=== PATIENT | female | born 2000 | race Caucasian/White ===

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

== ENCOUNTER 2022-01-12 17:16 | Inpatient (IN) | payer MEDICAID, SELFPAY ==
[2022-01-12 17:18] VITALS: BP 122/74; PULSE 96; RESP 20; TEMP 36.7; O2SAT 100; BMI 26.7
--- NOTE | 2022-01-12 18:49 | EX.ED.SAOD ---
HPI History of Present Illness Chief Complaint: Substance Abuse Informant: patient Onset/Context/Timing Onset: Month(s) Context: Gradual Onset Timing: Continuous Current Severity: Mild Maximum Severity: Mild Associated Symptoms Associated Symptoms: Positive for vomiting* and diarrhea* Narrative Narrative: 21-year-old female history of heroin and fentanyl abuse by smoking the substances. Denies any IV drug abuse. Requesting detox. Last use 2 days ago. Had some nausea, vomiting and diarrhea from withdrawal. Prior similar symptoms: Yes Recent Illness/Hospitalization: No PFSH PFSH Medical History no medical history no medical history Home Medications NK 01/12/22 [History Last Taken Unknown] Allergy/AdvReac Type Severity Reaction Status Date / Time No Known Allergies Allergy Verified 01/12/22 17:17 Surgical History no surgical history Social History Smoking Status: Current every day smoker tobacco type: cigarettes ROS ROS ED ROS Narrative Nausea, vomiting and diarrhea. Withdrawal from drug abuse. Review of Systems ROS Unobtainable: Denies due to encephalopathy Constitutional Constitutional ED: Denies chills Eyes Eyes: Denies blurry vision ENT ENT ED: Denies ear pain Cardiovascular Cardiovascular: Denies chest pain Respiratory/Chest Respiratory/Chest: Denies cough Gastrointestinal Gastrointestinal: Reports diarrhea, nausea and vomiting; Denies abdominal pain, constipation or melena Genitourinary Genitourinary ED: Denies dysuria Musculoskeletal Musculoskeletal: Denies arthralgias Integumentary Denies abscess Neurologic Neurologic: Denies headache(s) Psychiatric Psychiatric: Denies anxiety Endocrine Endocrinology: Denies cold intolerance Hematologic/Lymphatic Hematologic/Lymphatic: Denies easy bleeding Allergic/Immunologic Allergic/Immunologic ED: Denies mouth swelling EXAM Physical Exam Narrative Exam Narrative: 21-year-old female no acute distress. Vital signs stable afebrile. H EENT exam unremarkable atraumatic. Moist weeks membranes. Lungs clear to auscultation. Heart regular rhythm rate about 90 no murmur. Abdomen soft nontender. Moving all 4 extremities. No track rooney. Neurologically awake and alert no focal motor deficits. Const Vital Signs: 01/12/22 17:18 Temperature 98.0 F Temperature Source Temporal Pulse Rate 96 Respiratory Rate 20 H Blood Pressure 122/74 H Blood Pressure Mean 90 Pulse Ox 100 Oxygen Delivery Method Room Air Positive well nourished and well developed; Negative for cachectic or contractures General Appearance ED: well developed; Negative for cachectic, contractures or pallor Nutritional Appearance: Negative for cachectic HEENT Reports moist mucous membranes atraumatic; Negative for trauma Eyes PERRL and EOMs intact bilaterally General Eye ED: Negative for pale conjunctiva or scleral icterus Neck no lymphadenopathy, supple and no JVD Thyroid: Negative for tender Lymph Lymphatic: no lymphadenopathy noted; Negative for lymphadenopathy Chest Wall inspection of chest normal Chest: Negative for other Resp normal respiratory effort and clear to auscultation bilaterally Effort and Inspection: Negative for retractions Auscultation: Negative for rales, rhonchi or wheezes Cardio regular rate, regular rhythm, S1 normal heart sound, S2 normal heart sound and no murmurs Rate: Negative for bradycardia Rhythm: Negative for abnormal rhythm Bruits: Negative for other GI soft to palpation, non-tender, non-distended and no masses Inspection: Negative for abdominal distention Auscultation: Negative for hyperactive bowel sounds Palpation: Negative for tender Bladder / Kidney Exam: No other Back/Spine no CVA tenderness General Back: Negative for CVA tenderness Cervical Spine: Negative for cervical spine tenderness Thoracic Spine / Upper Back: Negative for thoracic spinal tenderness Lumbar Spine / Lower Back: Negative for lumbar spinal tenderness Extremity General Extremety ED: Negative for edema or tenderness General Extremity: Negative for edema Neuro oriented x3 Sensorium / Orientation: alert, oriented to person, oriented to place and oriented to time; Negative for confused, lethargic or stuporous Speech: speech normal Motor Exam: strength 5/5 throughout Psych mental status grossly normal and thought process normal Attitude: No belligerent Mood & Affect: Negative for depressed Skin General Skin Exam: Negative for jaundice or pallor Lesions: no lesions Rashes: no rashes Trauma: Negative for abrasion MDM MDM MDM Narrative Medical decision making narrative: 21-year-old female no seen past medical history. Requesting detox for fentanyl and heroin abuse by smoking them. No prior detox. Exam benign. Medically cleared. Hospitalist on page for admission. Discharge Plan Dx/Rx/DC Orders Clinical Impression: Heroin abuse, Mild fentanyl abuse, Desire for detoxification Disposition Disposition: [facility]
[2022-01-12 18:53] VITALS: BP 132/118; PULSE 69; RESP 16; TEMP 37.1; O2SAT 94
--- NOTE | 2022-01-12 19:09 | HP.PCM.HOS_ITS ---
[facility] - General General Date of Admission: 01/12/22 Date of Service: 01/12/22 Chief Complaint: Opiate detox HPI Narrative MIRNA JOSE, is a 21 F who presented to the emergency department was [facility] on 01/12/2022 requesting opiate detox. The patient states she started using approximately 2 g of fentanyl/heroin 3 months ago. That was her first use. She denies any history of IV drug use and states he would snort her opiates. She denies any other drug use, alcohol use and reports that she smokes approximately 1 pack of cigarettes at least a day. Her last use was approximately 2 days ago and she is having significant symptoms including nausea, vomiting, diarrhea, shaking, piloerection, malaise, abdominal pain, body aches, and she is had an intermittent cough as she has not smoked in the last several days either because she has not felt well enough to do so. She has never been through detox previously. Vital signs on presentation showed a temperature of 98.8, pulse of 69, blood pressure 132/18, respiratory rate of 16, oxygen saturations 94% on room air. CBC, CMP, and toxicology screen are pending on admission. PENDING SALE TO [facility] Medical History (Updated 01/12/22 @ 19:[address] Brittney Recinos DO) uterine contractions in third trimester, antepartum Tobacco abuse Medical History no medical history Home Medications NK 01/12/22 [History Last Taken Unknown] Allergy/AdvReac Type Severity Reaction Status Date / Time No Known Allergies Allergy Verified 01/12/22 17:17 no significant family history Surgical History no surgical history no surgical history Social History (Updated 01/12/22 @ 19:[address] Brittney Recinos DO) Smoking Status: Current every day smoker tobacco type: cigarettes Smoking packs per day: 1 Smoking cigarettes per day: 20.0 alcohol intake: never substance use type: heroin and other details: Fentanyl ROS Constitutional Constitutional: Reports anorexia, chills, fatigue, malaise and weakness; Denies change in weight, fever(s), night sweats or other Eyes Eyes: Denies blurry vision, change in eye color, change in vision, discharge from eye(s), double vision, erythema, eye pain, loss of vision or other ENT HEENT: Denies abnormal hearing, dysphagia, ear pain, epistaxis, headache(s), hearing loss, nasal congestion, nasal discharge, post nasal drip, sinus pr essure, sore throat or other Cardiovascular Cardiovascular: Denies chest pain, claudication, dyspnea on exertion, edema, lightheadedness, orthopnea, palpitations, paroxysmal nocturnal dyspnea, rapid heart rate, syncope or other Respiratory/Chest Respiratory/Chest: Reports cough and productive cough; Denies dyspnea, excessive phlegm production, hemoptysis, shortness of breath at rest, shortness of breath with exertion, wheezing or other Gastrointestinal Gastrointestinal: Reports abdominal pain, diarrhea, loose stools, nausea and vomiting; Denies coffee ground emesis, constipation, dyspepsia, hematemesis, hematochezia, melena or other Genitourinary Genitourinary: Denies burning urination, difficulty urinating, dysuria, hematuria, nocturia, urinary frequency, urinary hesitancy, urinary incontinence, urinary urgency or other Musculoskeletal Musculoskeletal: Reports arthralgias and myalgias; Denies back pain, joint pain, joint stiffness, joint swelling, neck pain or other Neurologic Neurologic: Denies abnormal gait, abnormal speech, confusion, disequilibrium, dizziness, focal weakness, headache(s), numbness, paresthesias, seizure-like activity, seizures, syncope, tingling, tremor(s) or other Psychiatric Psychiatric: Denies anxiety, depression, homicidal ideation, suicidal ideation or other Endocrine Endocrinology: Denies change in body appearance, cold intolerance, excessive sweating, heat intolerance, polydipsia, polyuria or other Hematologic/Lymphatic Hematologic/Lymphatic: Denies anemia, easy bleeding, easy bruising, lymphadenopathy or other Allergic/Immunologic Allergic/Immunologic: Denies rhinitis, hives, eczemia, asthma or other Vital Signs Vital Signs Vital Signs: 01/12/22 17:18 01/12/22 18:53 Temperature 98.0 F 98.8 F Temperature Source Temporal Oral Pulse Rate 96 69 Respiratory Rate 20 H 16 Blood Pressure 122/74 H 132/118 H Blood Pressure Mean 90 122 Pulse Ox 100 94 Oxygen Delivery Method Room Air Room Air Weight Weight: 75.1 kg Body Mass Index (BMI) 26.7 Physical Exam Const alert, oriented x3, no apparent distress, average body habitus and well nourished Constitutional Narrative: Young white female lying in bed, appears uncomfortable but nontoxic, family at bedside, no acute distress General Appearance: cooperative HEENT normocephalic, head/scalp atraumatic, hearing grossly normal bilaterally, moist oral mucous membranes, oropharynx normal and dentition normal HEENT Narrative: Mallampati 2, no thrush Resp normal respiratory effort, no retractions and no use of accessory muscles Resp Narrative: Scattered end expiratory wheeze with few rhonchi that clear with cough Auscultation: rhonchi and wheezes; Negative for crackles or rales Cardio regular rate, regular rhythm, S1 normal heart sound, S2 normal heart sound, no murmurs, no rub, no gallops, no clicks and no JVD GI normal to inspection, nondistended, normoactive bowel sounds, soft to palpation, non-tender and non-distended; Negative for hepatosplenomegaly Extremity no clubbing, cyanosis or edema Extremity Narrative: 2+ pedal pulses Neuro oriented x3, CN's II-XII intact bilaterally, moves all extremities and no focal motor deficits Sensorium / Orientation: awake, alert, oriented to person, oriented to place and oriented to time Speech: speech normal Psych Psych Narrative: Affect is flattened, mood seems depressed Results Lab / Micro Data Attestation: I reviewed the patient's lab results. Assessment & Plan Assessment/Plan (1) Desire for detoxification: (2) Mild fentanyl abuse: (3) Heroin abuse: (4) Opiate abuse, continuous: PLAN: Plan Acute opiate withdrawal -Drug of choice fentanyl/heroin -Uses intranasally -Typically uses 2 g daily -Last use 2 days ago -Very symptomatic at admission -Start Subutex per [facility] protocol -All lab including CBC/CMP/tox screen are pending on admission -Supportive medications -180 consult Elevated blood pressure -Likely related to withdrawal -Monitor -No history of hypertension at baseline Tobacco abuse -Patient smokes at least 1 pack cigarettes a day -Has not smoked in several days secondary to feeling poorly -Nicotine patch available -Recommend cessation DVT prophylaxis -Low risk -Ambulation protocol CODE STATUS -Full code Charges/Coding Visit Charges Inpatient E&M: 47027 Init Hosp L2
--- NOTE | 2022-01-12 19:13 | CM.ED ---
Addendum entered by Christine Lawrence 01/12/22 19:30: SW placed a call to treatment navigator and updated Jovita on pt's admission to [facility]. Original Note: Social Work Note Reason for Referral: Pt requesting detox from [facility] SW in to speak with pt. Pt has guest present in room. Pt gave permission for this worker to speak to her in front of her guest. Pt confirms she is at [facility] for RAMP/Detox Program. Pt states that she was informed of the rules. Plan: SUSHMA Lawrence TRAFFIC RATE ANALYST, [employer]ING [employer]
[2022-01-12 19:18] LABS: Absolute Lymphocyte Count 1.71 X10^3/uL (0.83-4.51); Absolute Neutrophil Count 8.4 X10^3/uL (2.0-7.7); Basophil# 0.03 X10^3/uL; Basophil% 0.3 % (0-1); Hematocrit 41.4 % (37-47); Hemoglobin 13.7 g/dL (12.0-15.0); Lymphocyte # 1.71 X10^3/ul (0.83-4.51); Lymphocyte % 15.9 % (19-41); Mean Corp Hgb Conc 33.1 g/dL (32-36); Mean Corpuscular Hgb 28.2 pg (27.0-32.0); Mean Corpuscular Volume 85.2 fL (81-99); Mean Platelet Vol. 9.8 fl (6.2-12.0); Monocyte# 0.57 X10^3/uL; Monocyte% 5.3 % (0-10); NRBC Flagged by Analyzer 0 % (0-5); Neutrophil # 8.41 X10^3/uL (2.7-7.7); Neutrophil % 77.9 % (47-70); Platelet Count 528 K/mm3 (150-450); RBC Distribution Width CV 14.5 % (11.6-14.6); RBC Distribution Width SD 44.2 fl (35.1-43.9); Red Blood Count 4.86 M/mm3 (4.2-5.4); White Blood Count 10.8 K/mm3 (4.4-11.0)
[2022-01-12 19:31] VITALS: BP 132/118; PULSE 69; RESP 16; TEMP 37.1; O2SAT 94
[2022-01-12 19:33] LABS: Amphetamine Urine VISTA NEGATIVE (<1000 ng/mL); Barbiturate Urine VISTA NEGATIVE (< 200 ng/mL); Benzodiazepine Urine VISTA NEGATIVE (< 200 ng/mL); Cocaine Urine VISTA NEGATIVE (< 300 ng/mL); Ecstacy Urine VISTA NEGATIVE (< 500 ng/mL); Methadone Urine VISTA NEGATIVE (< 300 ng/mL); PCP Urine VISTA NEGATIVE (< 25 ng/mL); THC Urine VISTA POSITIVE (< 50 ng/mL); Vista UDS pH Range 5
[2022-01-12 19:35] LABS: ALB/GLOB Ratio 0.8 RATIO (0.9-2.4); AST(SGOT) 16 U/L (15-37); Alanine Aminotransfer ALT/SGPT 41 U/L (13-56); Alkaline Phosphatase 105 U/L (45-117); Anion Gap 9 (5-15); BUN 9 mg/dL (7-18); BUN/Creat Ratio 11.3 RATIO (10-20); Calcium,Total 9.3 mg/dL (8.5-10.1); Chloride 108 mmol/L (98-107); Creatinine, Serum 0.79 mg/dL (0.55-1.02); EST Glomerular Filtration Rate 97 mL/min (>60); Est Glom Filt Rate - Afr Amer 118 mL/min (>60); Estimated Creatinine Clearance 106.34 ml/min; Globulin 4.8 g/dL (2.2-4.2); Glucose 100 mg/dL (74-106); Potassium 3.4 mmol/L (3.5-5.1); Protein, Total 8.8 g/dL (6.4-8.2); Sodium Level 141 mmol/L (136-145)
[2022-01-12 20:12] LABS: Internal QC Validated? YES +Cl - CLEAR BKGD; Pregnancy, Urine Negative Negative
[2022-01-12 20:28] VITALS: BMI 26.6
[2022-01-12 20:32] VITALS: BP 122/73; PULSE 64; RESP 18; TEMP 37.2; O2SAT 98
[2022-01-12] MEDS: traZODone 100 MG Tablet PO (20:48)
[2022-01-12] MEDS: Methocarbamol 750 MG Tablet 1500 MG PO (20:48)
[2022-01-12] MEDS: Buprenorphine HCl 2 MG TAB.SUBL SL (20:48)
[2022-01-12] MEDS: Dicyclomine 10 MG Capsule 20 MG PO (20:48)
[2022-01-13] VITALS (7 sets, daily range): BP systolic 100–119; BP diastolic 59–79; PULSE 70–102; RESP 16–21; TEMP 36.9–38.1; O2SAT 95–100
[2022-01-13] MEDS: Ondansetron 8 MG Tablet PO ×2 (01:23→12:01)
[2022-01-13] MEDS: hydrOXYzine PAM 25 MG Capsule 50 MG PO ×2 (01:23→12:01)
[2022-01-13] MEDS: cloNIDine HCl 0.1 MG Tablet PO (01:23)
[2022-01-13] MEDS: Buprenorphine HCl 2 MG TAB.SUBL SL ×3 (04:56→21:00)
[2022-01-13] MEDS: Methocarbamol 750 MG Tablet 1500 MG PO ×2 (08:23→17:58)
[2022-01-13] MEDS: Acetaminophen 325 MG Tablet 650 MG PO ×2 (08:23→21:00)
[2022-01-13] MEDS: Gabapentin 300 MG Capsule PO ×2 (08:23→17:58)
[2022-01-13 09:16] LABS: ALB/GLOB Ratio 0.8 RATIO (0.9-2.4); AST(SGOT) 13 U/L (15-37); Alanine Aminotransfer ALT/SGPT 32 U/L (13-56); Albumin, Serum 3.5 g/dL (3.2-5.0); Alkaline Phosphatase 89 U/L (45-117); Anion Gap 7 (5-15); BUN 10 mg/dL (7-18); BUN/Creat Ratio 13.3 RATIO (10-20); Calcium,Total 9.1 mg/dL (8.5-10.1); Chloride 112 mmol/L (98-107); Creatinine, Serum 0.75 mg/dL (0.55-1.02); EST Glomerular Filtration Rate 104 mL/min (>60); Est Glom Filt Rate - Afr Amer 125 mL/min (>60); Estimated Creatinine Clearance 112.01 ml/min; Globulin 4.2 g/dL (2.2-4.2); Glucose 103 mg/dL (74-106); Potassium 3.7 mmol/L (3.5-5.1); Protein, Total 7.7 g/dL (6.4-8.2); Sodium Level 142 mmol/L (136-145)
[2022-01-13] MEDS: Dicyclomine 10 MG Capsule 20 MG PO (12:01)
--- NOTE | 2022-01-13 12:02 | PCM.PN.HOSP ---
Subjective Subjective Follow-up on acute opioid withdrawal: Patient was seen and examined. She complains of feeling hot and cold flashes. Complains of generalized aches. Objective Data Objective Data Vital Signs: Vital Signs Temp Pulse Resp BP Pulse Ox O2 Del Method 98.5 F 70 16 117/59 L 100 Room Air 01/13/22 04:52 01/13/22 04:52 01/13/22 04:52 01/13/22 04:52 01/13/22 04:52 01/13/22 04:52 Oxygen Delivery Method Room Air Weight: 74.9 kg Body Mass Index (BMI) 26.6 Lab / Micro Data Result Diagrams: 01/12/22 18:02 01/13/22 08:10 Labs: Laboratory Results - last 24 hr 01/12/22 18:02: WBC 10.8, RBC 4.86, Hgb 13.7, Hct 41.4, MCV 85.2, MCH 28.2, MCHC 33.1, RDW Std Deviation 44.2 H, RDW Coeff of Mikayla 14.5, Plt Count 528 H, MPV 9.8, Immature Gran % (Auto) 0.600, Neut % (Auto) 77.9 H, Lymph % (Auto) 15.9 L, Sandoval % (Auto) 5.3, Eos % (Auto) 0.0, Baso % (Auto) 0.3, Absolute Neuts (auto) 8.4 H, Absolute Lymphs (auto) 1.71, Nucleated RBC % 0 01/12/22 18:02: Sodium 141, Potassium 3.4 L, Chloride 108 H, Carbon Dioxide 24.0, Anion Gap 9, BUN 9, Creatinine 0.79, Estim Creat Clear Calc 106.34, Est GFR (MDRD) Af Amer 118, Est GFR (MDRD) Non-Af 97, BUN/Creatinine Ratio 11.3, Glucose 100, Calcium 9.3, Total Bilirubin 0.50, AST 16, ALT 41, Alkaline Phosphatase 105, Total Protein 8.8 H, Albumin 4.0, Globulin 4.8 H, Albumin/Globulin Ratio 0.8 L 01/12/22 18:02: Urine Opiates Screen NEGATIVE, Urine Methadone Screen NEGATIVE, Ur Barbiturates Screen NEGATIVE, Ur Phencyclidine Scrn NEGATIVE, Ur Amphetamines Screen NEGATIVE, MDMA (Ecstasy) Screen NEGATIVE, U Benzodiazepines Scrn NEGATIVE, Urine Cocaine Screen NEGATIVE, U Cannabinoids Screen POSITIVE H, Ur Drug Screen Comment 01/12/22 18:02: Urine Test Negative 01/13/22 08:10: Sodium 142, Potassium 3.7, Chloride 112 H, Carbon Dioxide 23.0, Anion Gap 7, BUN 10, Creatinine 0.75, Estim Creat Clear Calc 112.01, Est GFR (MDRD) Af Amer 125, Est GFR (MDRD) Non-Af 104, BUN/Creatinine Ratio 13.3, Glucose 103, Calcium 9.1, Total Bilirubin 0.50, AST 13 L, ALT 32, Alkaline Phosphatase 89, Total Protein 7.7, Albumin 3.5, Globulin 4.2, Albumin/Globulin Ratio 0.8 L Physical Exam Narrative Physical exam: General: Alert, Oriented x3, Cooperative, No apparent distress HEENT: Atraumatic Oral: Moist Mucosa Neck: Supple Lungs: Clear to auscultation Cardiovascular: HS I+II, regular, no murmurs Abdomen: Bowel Sounds Present, Soft, Non Tender Extremities: No edema Skin: No rashes, No breakdown Neurological: Grossly intact Psych/Mental Status: Appropriate Assessment & Plan Assessment/Plan (1) Desire for detoxification: (2) Mild fentanyl abuse: (3) Heroin abuse: (4) Opiate abuse, continuous: PLAN: Plan 1. Acute opiate withdrawal, in a patient who uses fentanyl/heroin Continue on opioid withdrawal protocol 2. Hypokalemia, resolved 3. Elevated blood pressure, improved, no history of hypertension 4. Nicotine dependence, advised to quit, continue nicotine patch 5. DVT prophylaxis - low risk; early ambulation recommended Charges/Coding Visit Charges Inpatient E&M: 50876 Subs Hosp L2
--- NOTE | 2022-01-13 12:17 | ADDICTION ---
This curriculum writer met with PT to conduct ASAM, MSE, AUDIT, DUDIT assessments and to plan for d/c. PT A+Ox4 and participated actively. All assessments completed and placed in PT's chart. PT plans to f/u with [facility] in [place] for treatment services. PT did not indicate a need for transportation post d/c from [facility].
[2022-01-13] MEDS: Ipratropium/Albuterol Sulfate 3 ML AMPUL.NEB INHALATION ×2 (14:01→19:15)
[2022-01-13] MEDS: traZODone 100 MG Tablet PO (21:00)
[2022-01-14] MEDS: hydrOXYzine PAM 25 MG Capsule 50 MG PO (00:35)
[2022-01-14 03:20] VITALS: BP 121/56; PULSE 86; RESP 18; TEMP 37.4; O2SAT 99
[2022-01-14] MEDS: Gabapentin 300 MG Capsule PO (03:25)
[2022-01-14] MEDS: Buprenorphine HCl 2 MG TAB.SUBL SL ×2 (03:45→13:01)
--- NOTE | 2022-01-14 08:07 | PN.HOSP_ITS ---
Subjective Subjective Follow-up on acute opioid withdrawal: Patient was seen and examined.?No acute events overnight. Patient stated that she felt much improved. Her coughing is improved with breathing treatment. Objective Data Objective Data Vital Signs: Vital Signs Temp Pulse Resp BP Pulse Ox O2 Del Method 99.3 F H 86 18 121/56 H 99 Room Air 01/14/22 03:20 01/14/22 03:20 01/14/22 03:20 01/14/22 03:20 01/14/22 03:20 01/14/22 03:20 Oxygen Delivery Method Room Air Weight: 74.9 kg Body Mass Index (BMI) 26.6 Lab / Micro Data Result Diagrams: 01/12/22 18:02 01/13/22 08:10 Labs: Laboratory Results - last 24 hr 01/13/22 08:10: Sodium 142, Potassium 3.7, Chloride 112 H, Carbon Dioxide 23.0, Anion Gap 7, BUN 10, Creatinine 0.75, Estim Creat Clear Calc 112.01, Est GFR (MDRD) Af Amer 125, Est GFR (MDRD) Non-Af 104, BUN/Creatinine Ratio 13.3, Glucose 103, Calcium 9.1, Total Bilirubin 0.50, AST 13 L, ALT 32, Alkaline Phosphatase 89, Total Protein 7.7, Albumin 3.5, Globulin 4.2, Albumin/Globulin Ratio 0.8 L Physical Exam Narrative Physical exam: General: Alert, Oriented x3, Cooperative, No apparent distress HEENT: Atraumatic Oral: Moist Mucosa Neck: Supple Lungs: Clear to auscultation, occasional scattered wheezes Cardiovascular: HS I+II, regular, no murmurs Abdomen: Bowel Sounds Present, Soft, Non Tender Extremities: No edema Skin: No rashes, No breakdown Neurological: Grossly intact Psych/Mental Status: Appropriate Assessment & Plan Assessment/Plan (1) Desire for detoxification: (2) Mild fentanyl abuse: (3) Heroin abuse: (4) Opiate abuse, continuous: PLAN: Plan 1. Acute opiate withdrawal, improving, Cina score is 1, Patient who uses fentanyl/heroin Continue on opioid withdrawal protocol grain elevator worker consulted, patient will follow up with [facility] recovery services in [place] 2. Hypokalemia, resolved 3. Elevated blood pressure, improved, no history of hypertension 4. Nicotine dependence, advised to quit, continue nicotine patch 5. DVT prophylaxis - low risk; early ambulation recommended Charges/Coding Visit Charges Inpatient E&M: 50717 Subs Hosp L2
[2022-01-14 08:47] VITALS: BP 105/63; PULSE 93; RESP 15; TEMP 37.1; O2SAT 100
[2022-01-14 13:42] VITALS: BP 111/73; PULSE 93; RESP 16; TEMP 37.2; O2SAT 99
--- NOTE | 2022-01-14 15:27 | DCINST_ITS ---
Discharge Instructions Diet Discharge Diet: No restrictions Activity Discharge Activity: Return to Normal Activity Follow Up Care Test Results: Test results from this visit will be discussed in further detail at your follow- up appointment, if applicable. Discharge Plan Admission Admit Date/Time: 01/12/22 18:58 Primary Reason for Your Visit: Acute opioid withdrawal Attending Provider: Ivonne Adhikari Primary Care Provider: Care Physician,No Primary Consulting Providers: Brittney Recinos Instructions Additional Instructions / Restrictions: You are strongly advised to continue to avoid use of opioids. You are also advised to stop smoking. Follow-up with your outpatient drug rehab program as scheduled. Discharge Orders/Prescriptions Prescriptions: No Action NK Referrals / Follow Up: Care Physician,No Primary [Primary Care Provider] - Disposition Disposition (needs filled in before D/C Order can be placed): Home, Self Care
--- NOTE | 2022-01-14 15:28 | PCM.DC.SUM ---
Providers Date of Admission: 01/12/22 Date of Discharge: 01/14/22 Primary Care Physician: Jaquelin Primary Care Phys Reason For Visit: OPIATE DETOX Diagnosis Discharge Diagnosis (1) Desire for detoxification: Status: Acute (2) Mild fentanyl abuse: Status: Deleted Code(s): F11.10 - Opioid abuse, uncomplicated (3) Heroin abuse: Status: Deleted Code(s): F11.10 - Opioid abuse, uncomplicated (4) Opiate abuse, continuous: Status: Acute Code(s): F11.10 - Opioid abuse, uncomplicated Medications at Discharge Home Medications NK 01/12/22 Hospital Course Operations None Procedures None Summary of Care Provided Minutes Spent on Discharge: 25 Hospital Course: 21-year-old female who presented requesting for medical stabilization from acute opioid withdrawal. Patient admits to using 2 g of fentanyl/heroin. She snorts the opioids. She also smokes a pack of cigarettes a day. Her last use was 2 days prior to admission. She admitted to nausea, vomiting, diarrhea, shaking, piloerection, malaise, abdominal pain, body aches. She was admitted to the [facility] floor and managed under opioid withdrawal protocol with Subutex. Patient continued to improve. She was seen by delinquency prevention social worker and will follow up with [facility] drug program in the outpatient. Physical Exam Narrative See progress note on the day Weight / BMI Weight Weight: 74.9 kg Body Mass Index (BMI) 26.6 ABG / Lab / Microbiology Data Result Diagrams: 01/12/22 18:02 01/13/22 08:10 D/C Instructions Discharge Diet: No restrictions Meaningful Use Info Meaningful Use Diagnoses (Choose all that apply): None applicable Discharge Plan Admission Admit Date/Time: 01/12/22 18:58 Primary Reason for Your Visit: Acute opioid withdrawal Attending Provider: Ivonne Adhikari Primary Care Provider: Care Physician,Jaquelin Primary Consulting Providers: Brittney Recinos Instructions Additional Instructions / Restrictions: You are strongly advised to continue to avoid use of opioids. You are also advised to stop smoking. Follow-up with your outpatient drug rehab program as scheduled. Discharge Orders/Prescriptions Prescriptions: No Action NK Referrals / Follow Up: Care Physician,No Primary [Primary Care Provider] - Disposition Disposition (needs filled in before D/C Order can be placed): Home, Self Care Charges/Coding Visit Charges Inpatient E&M: 52599 Disch Hosp
== END 2022-01-14 16:51 | disposition home or self-care (01) | DRG 773 ==
LOC: ED 18:49 → MS3 19:32
PROVIDERS: Admitting Provider Internal Medicine; Emergency Provider Emergency Medicine; Visit Provider Internal Medicine
DX: F11.13 Opioid abuse with withdrawal (principal); E87.6 Hypokalemia; F11.23 Opioid dependence with withdrawal; F17.210 Nicotine dependence, cigarettes, uncomplicated; R03.0 Elevated blood-pressure reading, without diagnosis of hypertension
CPT/HCPCS: 36415; 80053; 80307; 81025; 85025; 87633; 94640; 99251; 99283; 99406; G0463

== ENCOUNTER 2022-08-26 17:59 | Observation (INO) | payer MEDICAID, SELFPAY ==
[2022-08-26 18:00] VITALS: BP 135/71; PULSE 117; RESP 16; TEMP 36.6; O2SAT 99; BMI 31.6
--- NOTE | 2022-08-26 19:00 | EDS_ITS ---
HPI History of Present Illness Chief Complaint: Substance Abuse Narrative Narrative: 22-year-old female who denies significant past medical history except for previous detox a year or so ago presents for detox from fentanyl and heroin. She states she usually smokes or snorts opiates. She denies use of other substances. She last used at 4 AM, approximately 15 hours ago. She is now feeling nausea and abdominal cramping. Last menstrual period 1 week ago. She presents for detox. She states last time she detoxed and then went to outpatient 180 program. [facility] Medical History Physical exam, pre-employment uterine contractions in third trimester, antepartum Tobacco abuse Home Medications NK 01/12/22 [History Last Taken Unknown] Allergy/AdvReac Type Severity Reaction Status Date / Time No Known Allergies Allergy Verified 08/26/22 18:01 Social History Smoking Status: Former smoker alcohol intake: never substance use type: heroin and other details: Fentanyl ROS ROS ED ROS Narrative Constitutional: No fever, no chills. HEENT: No sore throat. No neck pain. No loss of vision. No rhinorrhea. Cardiovascular: No chest pain. No palpitations. No pedal edema. Respiratory: No cough, no shortness of breath. Abdominal: Crampy abdominal pain. Positive nausea. No vomiting. Genitourinary: No dysuria. No hematuria. Musculoskeletal: No myalgias. No arthralgias. Neurologic: No headaches. No dizziness. No lightheadedness. Skin: No rash. No change in color. Psychiatric: No depression. No anxiety. EXAM Physical Exam Narrative Exam Narrative: Afebrile. Vital signs noted. HEENT: Normocephalic. Atraumatic. PERRL, EOMI. Neck soft and supple. No point tenderness or step off. Cardiovascular: Positive tachycardia, no murmurs, rubs, or gallops appreciated. Respiratory: No tachypnea. Lungs clear to auscultation bilaterally. Gastrointestinal: Abdomen soft, nontender, with normoactive bowel sounds. No rebound or guarding. Neurological: Awake. Alert. Nonfocal, nonlateralizing. Skin: No rash. Normal color. No pallor. Musculoskeletal: No pedal edema. Full range of motion extremities. Const Vital Signs: 08/26/22 18:00 Temperature 98 F Temperature Source Temporal Pulse Rate 117 H Respiratory Rate 16 Blood Pressure 135/71 H Blood Pressure Mean 92 Pulse Ox 99 Oxygen Delivery Method Room Air MDM MDM MDM Narrative Medical decision making narrative: She will be bolused normal saline 1 L intravenously and administered Zofran 4 mg intravenously. This is secondary to her tachycardia. Medical screening labs will be obtained. I will review her medical clearance labs, and discussed patient with the hospitalist. Disposition is admit for detox. Patient is in stable condition. Discharge Plan Triage Chief Complaint: Substance Abuse ED Provider: Sumeet Flores Dx/Rx/DC Orders Prescriptions: No Action NK Primary Care Provider: Care Physician,No Primary Referrals: Care Physician,No Primary [Primary Care Provider] -
[2022-08-26 20:30] LABS: Amphetamine Urine VISTA NEGATIVE (<1000 ng/mL); Barbiturate Urine VISTA NEGATIVE (< 200 ng/mL); Benzodiazepine Urine VISTA POSITIVE (< 200 ng/mL); Cocaine Urine VISTA NEGATIVE (< 300 ng/mL); Ecstacy Urine VISTA NEGATIVE (< 500 ng/mL); Methadone Urine VISTA NEGATIVE (< 300 ng/mL); PCP Urine VISTA NEGATIVE (< 25 ng/mL); THC Urine VISTA NEGATIVE (< 50 ng/mL); Vista UDS pH Range 8
[2022-08-26] MEDS: 0.9% Normal Saline 1,000 ML 999 ML IV (20:39)
[2022-08-26] MEDS: Ondansetron 4 MG/2 ML Vial IV (20:39)
[2022-08-26 20:40] VITALS: BP 116/64; PULSE 73; RESP 16; O2SAT 98
[2022-08-26 20:47] LABS: Absolute Lymphocyte Count 1.53 X10^3/uL (0.83-4.51); Absolute Neutrophil Count 7.7 X10^3/uL (2.0-7.7); Basophil# 0.04 X10^3/uL; Basophil% 0.4 % (0-1); Eosinophil# 0.31 X10^3/uL; Eosinophils% 3.1 % (0-5); Hematocrit 39.6 % (37-47); Hemoglobin 13.2 g/dL (12.0-15.0); Lymphocyte # 1.53 X10^3/ul (0.83-4.51); Lymphocyte % 15.4 % (19-41); Mean Corp Hgb Conc 33.3 g/dL (32-36); Mean Corpuscular Hgb 28.4 pg (27.0-32.0); Mean Corpuscular Volume 85.3 fL (81-99); Mean Platelet Vol. 8.9 fl (6.2-12.0); Monocyte# 0.37 X10^3/uL; Monocyte% 3.7 % (0-10); NRBC Flagged by Analyzer 0 % (0-5); Neutrophil # 7.67 X10^3/uL (2.7-7.7); Neutrophil % 77.2 % (47-70); Platelet Count 396 K/mm3 (150-450); RBC Distribution Width CV 13.5 % (11.6-14.6); RBC Distribution Width SD 42.5 fl (35.1-43.9); Red Blood Count 4.64 M/mm3 (4.2-5.4); White Blood Count 9.9 K/mm3 (4.4-11.0)
[2022-08-26 20:55] LABS: Alcohol, Blood (Medical)-Serum < 3.0 mg/dL
[2022-08-26 20:58] LABS: Anion Gap 9 (5-15); BUN 9 mg/dL (7-18); BUN/Creat Ratio 14.3 RATIO (10-20); Calcium,Total 9.4 mg/dL (8.5-10.1); Chloride 104 mmol/L (98-107); Creatinine, Serum 0.63 mg/dL (0.55-1.02); EST Glomerular Filtration Rate 126 mL/min (>60); Est Glom Filt Rate - Afr Amer 152 mL/min (>60); Estimated Creatinine Clearance 127.11 ml/min; Glucose 112 mg/dL (74-106); Potassium 3.6 mmol/L (3.5-5.1); Sodium Level 138 mmol/L (136-145)
[2022-08-26 21:37] LABS: Internal QC Validated? YES +Cl - CLEAR BKGD; Pregnancy, Serum, hCG Quali. NEGATIVE Negative
[2022-08-26 22:00] VITALS: PULSE 64; RESP 18; O2SAT 100
--- NOTE | 2022-08-26 23:24 | HP.PCM.HOS_ITS ---
HPI - General General Date of Admission: 08/26/22 Date of Service: 08/26/22 Chief Complaint: Desire for detoxification HPI Narrative MIRNA JOSE, is a 22 F with a significant history of opioid abuse who presents to the emergency department for help with detoxification. Patient reports using about a gram of fentanyl and heroin each day. Last time he used was several hours on the same day of presentation. She has been using for the past 3 months. She smokes and snorts the heroin and fentanyl. She reports withdrawal symptoms of shakiness, nausea, and vomiting. On presentation to the emergency department patient was tachycardic and she was given IV fluids with resolution of tachycardia. Urine drug screen showed opiates and benzodiazepine. Patient reports that recently she had a drug screen with her special police officer and other substances were found. She reported these substances may be mixed with the heroin and fentanyl which she uses. She reported that she uses marijuana. Last time, she used marijuana was about a month ago. Also she reports that she smokes tobacco. Last time she smoked tobacco was about 3 months ago. [facility] Medical History Physical exam, pre-employment uterine contractions in third trimester, antepartum Tobacco abuse Home Medications NK 01/12/22 [History Last Taken Unknown] Allergy/AdvReac Type Severity Reaction Status Date / Time No Known Allergies Allergy Verified 08/26/22 18:01 Family History (Updated 08/26/22 @ 23:[address] Ammon Ling MD) Other CVA (cerebral vascular accident) Surgical History no surgical history no surgical history Social History Smoking Status: Former smoker alcohol intake: never substance use type: heroin and other details: Fentanyl ROS ROS Narrative Pertinent positives and pertinent negatives as noted in HPI. All other systems were reviewed and are negative Vital Signs Vital Signs Vital Signs: 08/26/22 18:00 08/26/22 20:40 08/26/22 22:00 Temperature 98 F Temperature Source Temporal Pulse Rate 117 H 73 64 Respiratory Rate 16 16 18 Blood Pressure 135/71 H 116/64 Blood Pressure Mean 92 81 Pulse Ox 99 98 100 Oxygen Delivery Method Room Air Room Air Room Air Weight Weight: 86.296 kg Body Mass Index (BMI) 31.6 Physical Exam Narrative Physical exam: General: Well-nourished, well-developed. Head: Normocephalic, atraumatic, no tenderness Eyes: Vision is grossly intact. EOMI ENT, no trauma, moist mucous membranes, no rhinorrhea Neck: Nontender, No thyromegaly. CVS: Regular rate and rhythm. S1-S2 present. No murmur, gallop or rub. Respiratory : clear to auscultation bilaterally, chest wall nontender, no wheezing Abdomen: Soft, nontender, nondistended, normal bowel sounds, no masses : Deferred Back: Nontender, no CVA tenderness, no midline spinal tenderness, deformities, step-offs Extremities: Nontender full range of motion, no trauma Skin: Normal color, no trauma, abrasions Neuro: Alert, oriented, cranial nerves II through XII grossly intact. Psychiatry: Normal mood. Normal affect. Not depressed. Not anxious. Results Lab / Micro Data Result Diagrams: 08/26/22 20:30 08/26/22 20:30 Labs: Laboratory Results - last 24 hr 08/26/22 19:35: Urine Opiates Screen POSITIVE H, Urine Methadone Screen NEGATIVE, Ur Barbiturates Screen NEGATIVE, Ur Phencyclidine Scrn NEGATIVE, Ur Amphetamines Screen NEGATIVE, MDMA (Ecstasy) Screen NEGATIVE, U Benzodiazepines Scrn POSITIVE H, Urine Cocaine Screen NEGATIVE, U Cannabinoids Screen NEGATIVE, Ur Drug Screen Comment 08/26/22 20:30: WBC 9.9, RBC 4.64, Hgb 13.2, Hct 39.6, MCV 85.3, MCH 28.4, MCHC 33.3, RDW Std Deviation 42.5, RDW Coeff of Mikayla 13.5, Plt Count 396, MPV 8.9, Immature Gran % (Auto) 0.200, Neut % (Auto) 77.2 H, Lymph % (Auto) 15.4 L, Wilcox % (Auto) 3.7, Eos % (Auto) 3.1, Baso % (Auto) 0.4, Absolute Neuts (auto) 7.7, Absolute Lymphs (auto) 1.53, Nucleated RBC % 0 08/26/22 20:30: Sodium 138, Potassium 3.6, Chloride 104, Carbon Dioxide 25.0, Anion Gap 9, BUN 9, Creatinine 0.63, Estim Creat Clear Calc 127.11, Est GFR (MDRD) Af Amer 152, Est GFR (MDRD) Non-Af 126, BUN/Creatinine Ratio 14.3, Glucose 112 H, Calcium 9.4 08/26/22 20:30: Ethyl Alcohol < 3.0 08/26/22 20:30: Serum , Qual NEGATIVE Assessment & Plan Assessment/Plan (1) Opiate abuse, continuous: (2) Desire for detoxification: PLAN: Plan Opioid dependence and withdrawal Review of previous records show the patient was at hospital from 01/12/2022 to 01/15/2022 for opioid detoxification. Urine toxicology was reviewed. It showed positive opiates and positive benzodiazepines. Patient be started on Subutex and other adjunctive medications: Gabapentin as needed; dicyclomine as needed; Vistaril as needed; methocarbamol as needed; clonidine as needed; Imodium as needed; trazodone as needed and Zofran as needed. Monitor COWS and CINA score DVT prophylaxis Low risk Encourage to ambulate Charges/Coding Visit Charges Inpatient E&M: 12451 Init Hosp L2
[2022-08-26 23:44] VITALS: BP 119/84; PULSE 81; RESP 16; TEMP 36.1; O2SAT 99
[2022-08-27 00:14] VITALS: BMI 31.4
[2022-08-27 00:18] VITALS: BP 130/63; PULSE 81; RESP 14; TEMP 36.9; O2SAT 100
[2022-08-27 04:06] VITALS: BP 128/76; PULSE 68; RESP 16; TEMP 36.9; O2SAT 100
[2022-08-27] MEDS: Dicyclomine 10 MG Capsule 20 MG PO (04:34)
[2022-08-27] MEDS: Methocarbamol 750 MG Tablet 1500 MG PO (04:34)
[2022-08-27] MEDS: Ondansetron 8 MG Tablet PO (04:34)
[2022-08-27] MEDS: Buprenorphine HCl 2 MG TAB.SUBL 4 MG SL (04:34)
[2022-08-27] MEDS: cloNIDine HCl 0.1 MG Tablet PO (05:54)
[2022-08-27] MEDS: hydrOXYzine PAM 25 MG Capsule 50 MG PO (05:54)
--- NOTE | 2022-08-27 06:48 | PCM.PN.BLA ---
Progress Note Notified that patient left AGAINST MEDICAL ADVICE.
== END 2022-08-27 06:40 | disposition left against medical advice (07) ==
LOC: ED 23:32 → MS3 08-27 13:17
PROVIDERS: Admitting Provider Hospitalist; Emergency Provider Emergency Medicine; Visit Provider Hospitalist
DX: F11.23 Opioid dependence with withdrawal (principal); Z87.891 Personal history of nicotine dependence
CPT/HCPCS: J7030; 80048; 80307; 82077; 84703; 85025; 96361; 96374; 99221; 99284; A4216; G0378; J2405

== ENCOUNTER 2024-11-26 02:46 | Emergency (ER) | payer MEDICAID, SELFPAY ==
[2024-11-26 02:48] VITALS: BP 120/94; PULSE 124; RESP 18; TEMP 36.6; O2SAT 98; BMI 30.6
--- NOTE | 2024-11-26 02:58 | RAD_ITS ---
PROCEDURE: ANKLE MIN 3 VIEWS 11/25/2024 REASON FOR EXAM: INJURY TECHNIQUE: 3 views of the left ankle COMPARISON: None FINDINGS: The bones are normal in morphology and alignment. There is no evidence of fracture or subluxation. The ankle mortise is intact. The imaged articulations are normal. There is soft tissue swelling over the medial malleolus. Bone mineral content is within normal limits. RAD/Ankle min 3 Views IMPRESSION: Soft tissue swelling over the medial malleolus is consistent with soft tissue i njury. There is no evidence of fracture. Reading Location: [facility]
[2024-11-26] MEDS: Acetaminophen 500 MG Tablet 1000 MG PO (04:14)
[2024-11-26 04:47] LABS: Red Blood Cells-Urine 0 SEEN /hpf (0-5)
[2024-11-26 04:49] LABS: Color, Urine Yellow (Yellow); Glucose, Dipstick Normal (Normal); Ketone-Dipstick 50 mg/dl (Negative); Leukocyte Esterase-Dipstick 100 /ul (Negative); Nitrite-Dipstick Positive (Negative); Occult Blood-Urine 10 /ul (Negative); Protein-Dipstick 30 mg/dl (Negative); Specific Gravity, Urine 1.025 (1.002-1.030); Urine Bilirubin Dipstick Negative (Negative); Urine Clarity Cloudy (Clear); Urine Urobilinogen 1 mg/dl (Normal)
[2024-11-26 05:04] LABS: Bacteria 4+ /hpf (None Seen); Calcium Oxalate Crystals Ur 1+ /hpf (<or=2+); Internal QC Validated? YES +Cl - CLEAR BKGD; Mucous, Urine 4+ /hpf (<or=2+); Pregnancy, Urine Negative Negative; Squamous Epithelial Cells - UA 10-25 SEEN /hpf (5-10); White Blood Cells >100 SEEN /hpf (0-5)
--- NOTE | 2024-11-26 05:17 | EX.ED.DYSGE1 ---
HPI History of Present Illness Chief Complaint: Lower Extremity Injury Narrative Narrative: Patient is a 24-year-old female with past medical history of IV drug use, hepatitis C, tobacco use who presented to the emergency department with a chief complaint of left ankle pain. States that she was walking and twisted her ankle on the side of sidewalk. States that she was having severe pain therefore she came here for further evaluation management. Patient denies hit her head and denies pain anywhere else. [facility] Medical History IV drug abuse Hepatitis C Marijuana abuse Physical exam, pre-employment Tobacco abuse uterine contractions in third trimester, antepartum Home Medications ?Medication ?Instructions ?Recorded ?Last Taken ?Type cephalexin 500 mg capsule 500 mg PO BID 5 days #10 caps 11/26/24 Unknown Rx escitalopram oxalate 20 mg tablet 20 mg PO DAILY 11/26/24 Unknown History (Lexapro) Allergy/AdvReac Type Severity Reaction Status Date / Time No Known Allergies Allergy Verified 11/26/24 02:47 Family History Other CVA (cerebral vascular accident) Social History Smoking Status: Current every day smoker tobacco type: e-cigarettes alcohol intake: never substance use type: heroin and other details: Fentanyl ROS ROS ED ROS Narrative Constitutional: Denies headache, lightness, dizziness Neurological: Denies numbness, wheeze, tingling Musculoskeletal: Complains of left ankle pain as noted above Skin: Denies any new rashes or lesions EXAM Physical Exam Narrative Exam Narrative: General: Patient sitting on the edge of the bed in tears secondary to her ankle pain Head: Atraumatic, normocephalic Eyes: PERRL bilaterally, EOMI blood, no conjunctival injection noted Neck: Soft, supple, trachea midline Cardiovascular: Patient tachycardic with regular rhythm Abdomen: No tenderness palpation, soft Musculoskeletal: Patient has tenderness palpation over the medial malleolus on the left ankle, although bony prominence palpated joints taken to full range of motion no pain elicited Extremities: DP pulses +2/4 in the bilateral lower extremities, +4/5 strength noted in the left lower extremity secondary to her ankle pain, +5/5 strength in the bilateral upper extremities in the right lower extremity Neurological: Patient follow commands knew that she was at [facility] year is 2024 Skin: Warm, dry, intact no rashes or lesions noted Const Vital Signs: 11/26/24 02:48 Temperature 98 F Temperature Source Oral Pulse Rate 124 H Respiratory Rate 18 Blood Pressure 120/94 H Blood Pressure Mean 102 Pulse Ox 98 MDM MDM MDM Narrative Medical decision making narrative: Patient is a 24-year-old female who presents to the emerged part with a chief complaint of left ankle pain. On the differential diagnose includes but not limited to ankle sprain, lateral malleolus fracture, medial malleolus fracture, tibia fracture. Once workup is obtained reviewed she will be reevaluated. Patient states that there is possibility therefore we will avoid NSAIDs and treat with Tylenol. Patient's x-ray of her ankle reviewed by myself and by radiology which showed soft tissue swelling over the medial malleolus is consistent with soft tissue injury there is no evidence of fracture. test was negative, urinalysis was consistent with UTI should be given prescription for Keflex year she was advised to follow-up and urine culture. She is encouraged return with worsening symptoms or concerns. She would like crutches and an Aircast which was provided. All question concerns answered she is discharged home in stable condition. She was advised to ice, elevate her leg as well. Lab Data Labs: Laboratory Results - last 24 hr 11/26/24 04:35 Urine Color Yellow Urine Clarity Cloudy Urine pH 6.0 Ur Specific Cameron 1.025 Urine Protein 30 H Urine Glucose (UA) Normal Urine Ketones 50 H Urine Occult Blood 10 H Urine Nitrite Positive H Urine Bilirubin Negative Urine Urobilinogen 1 H Ur Leukocyte Esterase 100 H Urine RBC 0 SEEN Urine WBC >100 SEEN Ur Squamous Epith Cells 10-25 SEEN Calcium Oxalate Crystal 1+ Urine Bacteria 4+ Urine Mucus 4+ Urine Test Negative Radiography Diagnostic Testing: Clinical Impression(s) from Imaging Studies Ankle X-Ray 11/26/24 02:58 IMPRESSION: Soft tissue swelling over the medial malleolus is consistent with soft tissue injury. There is no evidence of fracture. Reading [facility] Discharge Plan Triage Chief Complaint: Lower Extremity Injury ED Provider: Milton Mccarty Dx/Rx/DC Orders Clinical Impression: Ankle sprain Prescriptions: New cephalexin 500 mg capsule 500 mg PO BID 5 Days Qty: 10 0RF No Action escitalopram oxalate [Lexapro] 20 mg tablet 20 mg PO DAILY Primary Care Provider: Smitha Boudreaux NP Referrals: Smitha Boudreaux NP, [employer] [Primary Care Provider] - Activity Restrictions/Additional Instructions: Your x-ray did not show any broken bones. Rotate Tylenol and ibuprofen [id number] when you do this you can take some every 3 hours max dose of Tylenol in 24 hours or 1000 mg. Max dose of ibuprofen in 24 hours 3200 mg. Take the antibiotic that was sent to your pharmacy as prescribed for your urinary tract infection. You are given your first dose here. Follow-up on urine culture with your doctor. Return with any other concerns Print Language: Mongolian Disposition Disposition: Home, Self Care
[2024-11-26] MEDS: Cephalexin 250 MG Capsule 500 MG PO (05:26)
[2024-11-26 05:27] VITALS: BP 104/84; PULSE 100; RESP 20; TEMP 36.2; O2SAT 100
== END 2024-11-26 05:31 | disposition home or self-care (01) ==
PROVIDERS: Emergency Provider Emergency Medicine; PCP Nurse Practitioner Family; Visit Provider Emergency Medicine
DX: S93.402A Sprain of unspecified ligament of left ankle, initial encounter (principal); B19.20 Unspecified viral hepatitis C without hepatic coma; Z79.899 Other long term (current) drug therapy; F17.290 Nicotine dependence, other tobacco product, uncomplicated; X50.1XXA Overexertion from prolonged static or awkward postures, initial encounter
CPT/HCPCS: 73610; 81001; 81025; 87077; 87086; 87088; 87186; 99284